=== PATIENT | male | born 1975 | race American Indian/Alaskan Native ===

== ENCOUNTER 2019-04-27 04:30 | Emergency (ER) | payer OTHER ==
--- NOTE | 2019-04-27 05:43 | XRay Report ---
RIGHT SHOULDER 3 VIEWS INDICATION / CLINICAL INFORMATION: right shoulder pain. COMPARISON: None available. FINDINGS: No significant skeletal abnormality. Signer Name: Silvestre Lai MD FACR Signed: 04/27/2019 5:39 AM Workstation Name: [employer]
[2019-04-27 06:51] VITALS: BP 178/100
--- NOTE | 2019-04-27 06:59 | Emergency Department Report ---
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 Pain is dull and achy, worse with various range of motion. No numbness or tingling associated, no direct trauma. Thinks that he may Have overall dissolver got exposed to cold cold air, while completing a large job yesterday. Her portable chest, palpitations, chills, sweats. No shortness of breath ED Review of Systems ROS: Stated complaint: RIGHT SHOULDER PAIN Other details as noted in HPI Comment: All other systems reviewed and negative ED Past Medical Hx - Past Medical History Previous Medical History?: Yes Hx Hypertension: Yes Hx Asthma: Yes Additional medical history: High Cholesterol, Lipoma on back - Surgical History Past Surgical History?: Yes Additional Surgical History: Right elbow - Social History Smoking Status: Never Smoker Substance Use Type: None - Medications Home Medications: Home Medications Medication Instructions Recorded Confirmed Last Taken Type Albuterol Sulfate [Proventil HFA] 1 - 2 puff IH Q4H PRN #1 hfa.aer.ad 08/05/13 Unknown Rx Amlodipine Bes/Olmesartan Med 1 tab PO DAILY 08/05/13 08/05/13 Unknown History [Moses 10-40 mg] Beclomethasone Dipropionate [Qvar 2 inhalation IH BID 08/05/13 08/05/13 Unknown History 80MCG] Montelukast Sodium [Singulair] 4 mg PO QPM 08/05/13 08/05/13 Unknown History Prednisone 60 mg PO QDAY #12 tablet 08/05/13 Unknown Rx Testosterone [Androderm] 1 each TD 08/05/13 08/05/13 Unknown History HYDROcodone/APAP 10-325 [[place] 1 each PO Q6HR PRN #20 tablet 08/06/16 Unknown Rx 10/325] Ibuprofen [Motrin 800 MG tab] 800 mg PO Q8HR PRN #20 tablet 08/06/16 Unknown Rx Ketorolac [Toradol] 10 mg PO Q6H PRN #15 tablet 04/27/19 Unknown Rx Lisinopril [Zestril TAB] 20 mg PO QDAY #14 tablet 04/27/19 Unknown Rx Upper Extremity Exam - Exam General: Vital signs noted. No distress. Alert and acting appropriately. Head and Torso: No HEENT Abnormality, No Neck Tenderness, No Chest/Lungs Abnormality, No Abdominal Tenderness, No Back Tenderness Shoulder Exam: Yes Shoulder Tenderness (there is some discomfort with Miller test and O'Mauro's test. No pain with Raven. No sulcus sign. No deformities), Yes Normal Range of Motion in Shoulder, No Clavicle Tenderness, No Shoulder Deformity, No AC Joint Tenderness Arm Exam: No Arm/Humerus Tenderness, No Arm Deformity Elbow: No Elbow Tenderness, No Normal Range of Motion in Elbow, No Elbow Deformity Forearm: No Forearm Tenderness, No Forearm Deformity, No Pain with Pronation, No Pain with Supination Wrist: Yes Normal ROM in Wrist, No Wrist Tenderness, No Wrist Deformity, No Snuffbox Tenderness, No Pain with Axial Thumb Compression Hand: Yes Normal ROM in Digit(s), No Hand Tenderness, No Hand Deformity, No Digit Tenderness, No Digit(s) Deformity, No Tendon Dysfunction CMS Exam: No Broken Skin, No Normal Distal Pulses, No Normal Capillary Refill, No Normal Distal Sensation ED Course Vital Signs 04/27/19 04/27/19 04/27/19 04:33 04:39 06:50 Temperature 98.0 F Pulse Rate 107 H 91 H Respiratory 20 18 Rate Blood Pressure 188/114 Blood Pressure 166/101 178/100 [Left] O2 Sat by Pulse 98 99 Oximetry Critical care attestation.: If time is entered above; I have spent that time in minutes in the direct care of this critically ill patient, excluding procedure time. ED Disposition Clinical Impression: Right shoulder pain Disposition: DC-01 TO HOME OR SELFCARE Is pt being admited?: No Does the pt Need Aspirin: No Condition: Stable Instructions: Shoulder Sprain (ED), Arthralgia (ED), Tendinitis (ED) Prescriptions: Ketorolac [Toradol] 10 mg PO Q6H PRN #15 tablet PRN Reason: Pain Lisinopril [Zestril TAB] 20 mg PO QDAY #14 tablet Referrals: GENARO MERRITT MD [Primary Care Provider] - 3-5 Days JONATHAN IVEY MD [Staff Physician] - 3-5 Days Forms: Work/School Release Form(ED)
== END 2019-04-27 07:07 | disposition home or self-care (01) ==
LOC: ED 04:30
DX: M25.511 Pain in right shoulder (principal); I10 Essential (primary) hypertension; J45.909 Unspecified asthma, uncomplicated; E78.00 Pure hypercholesterolemia, unspecified; Z98.890 Other specified postprocedural states; Z79.899 Other long term (current) drug therapy
CPT/HCPCS: 99283